=== PATIENT | male | born 1945 | race Caucasian/White ===

== ENCOUNTER 2023-04-07 14:24 | Observation (INO) | payer MEDICARE, SELFPAY ==
--- NOTE | 2023-03-16 11:55 | EKG12_ITS ---
Test Reason : PRE-OP Blood Pressure : / mmHG Vent. Rate : 073 BPM Atrial Rate : 073 BPM P-R Int : 146 ms QRS Dur : 094 ms QT Int : 386 ms P-R-T Axes : 060 060 053 degrees QTc Int : 425 ms Normal sinus rhythm Normal ECG Confirmed by TERA SALAZAR, CORY ([id number]), scientific editor LEONCIO SCOTT ([id number]) on 03/17/2023 8:54:52 AM Referred By: Cheko Epps Confirmed By:CORY HALEY MD
[2023-03-16 12:43] LABS: Absolute Lymphocyte Count 1.49 X10^3/uL (0.83-4.51); Absolute Neutrophil Count 4.3 X10^3/uL (2.0-7.7); Basophil# 0.04 X10^3/uL; Basophil% 0.6 % (0-1); Eosinophil# 0.23 X10^3/uL; Eosinophils% 3.4 % (0-5); Hematocrit 45.3 % (40-54); Hemoglobin 15.4 g/dL (13.0-16.5); Lymphocyte # 1.49 X10^3/ul (0.83-4.51); Lymphocyte % 22.3 % (19-41); Mean Corpuscular Hgb 29.4 pg (27.0-32.0); Mean Corpuscular Volume 86.6 fL (80-94); Mean Platelet Vol. 11.3 fl (6.2-12.0); Monocyte# 0.65 X10^3/uL; Monocyte% 9.7 % (0-10); NRBC Flagged by Analyzer 0 % (0-5); Neutrophil # 4.25 X10^3/uL (2.7-7.7); Neutrophil % 63.9 % (47-70); Platelet Count 160 K/mm3 (150-450); RBC Distribution Width CV 13.3 % (11.6-14.6); RBC Distribution Width SD 42.4 fl (35.1-43.9); Red Blood Count 5.23 M/mm3 (4.6-6.2); White Blood Count 6.7 K/mm3 (4.4-11.0)
[2023-03-16 13:19] LABS: Magnesium 2.2 mg/dL (1.6-2.6)
[2023-03-16 13:31] LABS: Albumin, Serum 3.8 g/dL (3.2-5.0); Anion Gap 4 (5-15); BUN 20 mg/dL (7-18); BUN/Creat Ratio 14.5 RATIO (10-20); Calcium,Total 9.6 mg/dL (8.5-10.1); Chloride 107 mmol/L (98-107); Creatinine, Serum 1.38 mg/dL (0.70-1.30); EST Glomerular Filtration Rate 53 mL/min (>60); Est Glom Filt Rate - Afr Amer 64 mL/min (>60); Glucose 103 mg/dL (74-106); Potassium 4.2 mmol/L (3.5-5.1); Sodium Level 142 mmol/L (136-145)
[2023-03-16 13:44] LABS: Partial Thromboplast Time 31.6 Seconds (24.1-36.2)
[2023-03-16 13:52] LABS: Hemoglobin A1c 6.3 % (3.8-5.6)
[2023-03-16 14:28] LABS: Prothrombin Time (Protime)PT. 13.6 SECONDS (11.7-14.9)
--- NOTE | 2023-03-29 13:03 | PCM.HP.BLA ---
History and Physical History and Physical? Patient Name: Fly Hernandez : 1945 From:? CITLALLI GAYTAN PA-C? DATE OF PRE-OPERATIVE EXAM: 03/29/2023 DATE OF SURGERY:? 04/07/2023 SCHEDULED PROCEDURE:? Excision bony ossification left total hip with possible revision left total hip HISTORY OF PRESENT ILLNESS: Preoperative history and physical exam was performed on March 29, 2023.? This is a 77-year-old male who has a past history of left total hip arthroplasty by Dr. Yonathan Burnett on December 16, 2021.? Patient developed heterotopic ossification in which she has had limited range of motion severely with increased pain.? Patient has underlying stage III chronic kidney disease and was unable to use nonsteroidal anti-inflammatories postoperatively.? Range of motion is a significant factor in activities.? He has difficulty sitting upright due to the lack of flexion.? There is been no trauma or injury.? Patient has had consultation with oncology for perioperative radiation treatment.? We have also obtain surgical clearance from the primary care physician Dr. Lewis.? Patient also reports that he has carotid artery stenosis and which she has been followed by specialist and treated conservatively.? He states he has 60% blockage.? Patient has medical history pertinent for hypertension, type 2 diabetes mellitus, stage III chronic kidney disease, hypercholesterolemia, benign prostatic hyperplasia, peripheral vascular disease.? He currently denies any chest pain, shortness of breath, fevers chills or recent infections.? Denies past history of DVT or pulmonary embolism.? After failing conservative measures at discussing all treatment options was Dr. Yonathan Burnett, the patient does wish to proceed with a excision bony ossification left total hip with possible revision left total hip.? Patient has also had a previous CT scan which was consistent with Superior bridging heterotopic ossification. REVIEW OF SYSTEMS: Review Of Systems: Constitutional: Denies change in appetite, fever and weight change. Cardiovasular: Denies chest pain, heart murmur and irregular heartbeat. Respiratory: Denies cough, pneumonia, shortness of breath, tuberculosis and wheezing. Gastrointestinal: Denies constipation, diarrhea, heartburn, nausea, rectal itching, bloody stools and vomiting. Genitourinary: Denies incontinence. Musculoskeletal: Reports gait disturbance, pain and weakness, but denies trouble walking. Skin: Reports tattoo, but denies Raynaud's and history of shingles. Neurological: Denies ambulatory dysfunction, dizziness, numbness/tingling and tremor. Psychiatric: Denies anxiety, insomnia and stress. Hematologic/Lymphatic: Denies anemia, bleeding/bruising tendency and past transfusion. Reviewed and updated. PAST MEDICAL HISTORY: Advance Care Plan: Other Directive, LIVING WILL Effective Date: 11/14/2021 Other Directive, POA Effective Date: 11/14/2021 Past Medical History: Medical Problems: Diabetes, High Blood Pressure, Hypercholesterolemia, Vascular Disease/ Peripheral, Arthritis, Covid-19 Vaccinated, Ureteral obstruction, Kidney Disease/Renal Failure, benign prostatic hyperplasia, Gout, carotid stenosis Accidents: None Surgical Hx: Appendectomy - [facility] Kidney Stones - [facility] Total Hip Replacement - (12/16/2021) SAW @ [facility] Anesthesia Complications: None Assistive Devices: Glasses, Dentures Reviewed and updated. SOCIAL HISTORY: Social History: Marital: .Occupation: Retired.Work Status: Retired.Hand Dominance: Right-handed. Personal Habits:? Cigarette Use: Former.Smokeless Tobacco: Never Used Smokeless Tobacco.E-Cigarette Use: Never used.Alcohol: Occasionally.Drug Use: Denies Use.Enjoy Exercising: Never Exercises. Reviewed, no changes. VITALS: Ht: 68 Wt: 158lb Wt k.[id number] BMI: 24.0 BP: 114/58 Pulse: 74 Resp: 12 T: 97.7 T: 36.5C Pain Level: 0 O2SatR: 98 ALLERGIES: Anti-Inflammatories Ibuprofen Aleve Naprosyn? MEDICATIONS: Atorvastatin Calcium 40 mg 1 by mouth every day, Metformin HCL 500 mg 1 by mouth every day, Merrick 3 1000 mg 2 by mouth every day, Vitamin D3 50 mcg (2000 Ut) 1 by mouth every day, Aspirin Adult Low Dose 81 mg by mouth 1 a day, Lisinopril 20 mg 1 by mouth every day PRE-OP EXAM:? General appearance:NORMAL? ? ? Other: Eyes: Conjunctivae and lids: NORMAL? Pupils: ERR Ears, Nose, Mouth, and Throat: NORMAL? Other: Inspection of lips, teeth and gums: NORMAL? ?Other: Neck: Examination of neck: no masses noted. Respiratory: Assessment of respiratory effort: NORMAL? ?Other: ?Auscultation of lungs: clear to auscultation no wheezes, rhonchi or rales. Cardiovascular:? Auscultation of heart: regular rate and rhythm, no murmurs, gallops or rubs. Exam of carotid arteries: NORMAL? ?Other: PHYSICAL EXAMINATION: Previous incision of the left hip is well-healed without erythema.? No signs of infection.? Range of motion is significantly limited with 30-45 flexion.? Internal rotation neutral.? Leg lengths appear equal.? Sensation intact to light touch. IMAGING STUDIES: Previous x-rays of the left hip revealed no signs of loosening or subsidence.? 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 On the lateral view there is significant anterior ossification.? These were compared to previous x-rays in which it does not show significant progression signifying maturation of the process.?? CT scan of the left thigh reveals anterior superior bridging heterotopic ossification IMPRESSION: 1.? Presence of left total hip arthroplasty with heterotopic ossification stage IV complete bridging 2.? Type 2 diabetes mellitus 3.? Hypertension 4.? Hypercholesterolemia 5.? Peripheral vascular disease 6.? Stage III chronic kidney disease 7.? Benign prostatic hyperplasia 8.? History of gout 9.? Carotid stenosis PLAN: Dr. Yonathan Burnett did discuss and review with the patient all treatment options including surgical versus nonsurgical options.? Patient does wish to proceed with the above-stated procedure.? Potential risks, benefits, and complications of the procedure were discussed in detail including but not limited to , infection, nerve and blood vessel damage, persistent pain, numbness, tingling, paresthesias, blood clot, pulmonary embolism, and requirement for possible further surgery.? The patient expressed full understanding and has no further questions for the doctor.? Patient does agree to proceed with the above-stated procedure and has signed the surgery consent form. POST-OP MEDICATION PLAN: Pain Medications: Patient is unable to use nonsteroidal anti-inflammatories due to stage III chronic kidney disease DVT Prophylaxis:? Aspirin 81 mg twice daily for 4 weeks postoperatively.? Denies past history of DVT or pulmonary embolism This dictation was created using voice recognition software. Phonetic and/or grammatical errors may exist. ___? I have re-examined the patient.? There are no clinical changes since date of exam. ___? See progress notes for changes. ___? Dictated on admission Date: ? ? ?Time: Signature:
[2023-04-07] VITALS (12 sets, daily range): BP systolic 117–133; BP diastolic 66–85; PULSE 81–98; RESP 12–18; TEMP 36.3–36.8; O2SAT 94–100; BMI 24.2
--- NOTE | 2023-04-07 | HIP_PTH ---
PATIENT: JOHN MOE LOC: MS3 U#:[id number] AGE/SX: 77/M ROOM: [facility] RE04/07/[address]: Dr. Yonathan Burnett MD : 1945 BED: 1 DIS: 04/08/2023 SPEC #: [id number] RECD: 04/07/23 15:20 STATUS: VENITA SNOW #: [id number] MELISSA: 04/07/23 00:[address]: Yonathan Burnett DEPT: SURGICAL PATHOLOGY RECD BY: Ravi Saldivar ENTERED: 04/08/23 09:31 SP TYPE: TOTAL HIP OTHR DR: Dr. Celestino Jefferson MD Tissues: Hip, NOS Procedures: Decalcification bone/plaque Surgery Specimen Level IV HEADER OPERATION: ERAS, excision bony ossification left hip PRE-OP DIAGNOSIS: Presence of left total hip arthroplasty with heterotopic ossification stage IV complete bridging TISSUE SUBMITTED: Left hip heterotopic ossification MICROSCOPIC DIAGNOSIS Left hip heterotopic ossification: Pieces of bone with reactive changes, clinically heterotopic ossification. PAUL:abhilash 04/15/2023 MICROSCOPIC DESCRIPTION Slides are reviewed. GROSS DESCRIPTION Received is one container labeled with the patient's name and designated left hip heterotopic ossification. The specimen consists of multiple pieces of bone that in aggregate measure 13.0 x 10.0 x 4.0 cm. No soft tissue is identified. Dumper sections are submitted after decalcification in three cassettes. / PAUL:abhilash 04/08/2023 TC:5 CPT: 59279, 03094
[2023-04-07] MEDS: Lactated Ringers 1,000 ML 999 ML IV ×2 (09:50→13:55)
[2023-04-07] MEDS: Magnesium 1 GM over 15 mins IV (10:00)
[2023-04-07] MEDS: Acetaminophen 500 MG Tablet 1000 MG PO ×2 (10:25→21:29)
[2023-04-07] MEDS: Gabapentin 600 MG Tablet PO (10:26)
[2023-04-07 10:59] LABS: Bedside Glucose 148 mg/dL (74-106)
[2023-04-07] MEDS: TXA 1000mg in NS100 100ml (IVPB at Closure) 660 MG IV (12:07)
[2023-04-07] MEDS: Lactated Ringers 1,000 ML 75 ML IV (12:16)
[2023-04-07] MEDS: Cefazolin 2 GM in 0.9% Normal Saline 100 ML IV (12:24)
[2023-04-07] MEDS: dexAMETHasone 10 MG/ML Vial IV (12:30)
[2023-04-07] MEDS: TXA 1000mg in NS100 100ml (IVPB at Incision) 660 MG IV (12:31)
[2023-04-07] MEDS: Heparin 10,000 UNITS/10 ML Vial 10000 UNITS (12:45)
--- NOTE | 2023-04-07 12:52 | RAD_ITS ---
STUDY: X-RAY - PELVIS AND LEFT HIP REASON FOR EXAM: Male, 77 years old. Replacement TECHNIQUE: 3 intraoperative views of the pelvis and hip. COMPARISON: None. FINDINGS: 3 limited intraoperative views were performed as the patient has undergone total replacement of the left hip joint. Components demonstrate anatomic alignment. No evidence of intraoperative complication. RAD/Hip 1 view with Pelvis IMPRESSION: No intraoperative complications noted during left hip replacement surgery Electronically Signed: Felipe Horner MD at 16:14 EDT ,
[2023-04-07] MEDS: JPS (Morphine 10mg/ml) OPERA.SITE (14:23)
--- NOTE | 2023-04-07 14:39 | OP.PCM_ITS ---
Report of Operation Date of Procedure: 04/07/23 Pre-Operative Diagnosis: Left hip painful total replacement with stiffness and heterotopic ossification Post-Operative Diagnosis: Left hip painful total replacement with stiffness and heterotopic ossification Surgery/Procedure Performed:: Left hip excision of benign bone lesion 10 cm x 12 cm x 4 cm Description of Surgical Findings:: Significant amount of heterotopic ossification from anterior and superior hip was removed. Measurements were 10 cm x 4 cm x 12 cm. Preoperatively patient can flex to 30 degrees. Postoperatively patient flex to 85 to 90 degrees without significant restriction. Surgeon: Yonathan Burnett ground instructor advanced: Zackary Brown Type of Anesthesia: Spinal Anesthesiologist: Kanu Clement Special Medications: 2 g Ancef, 1 g TXA at incision, 1 g TXA closure, 10 mg Decadron, joint cocktail (5 mg Duramorph, 30 mL of 0.5% Ropivicaine, 1000 units of epinephrine, 30 mg of Toradol) Specimen's removed: Heterotopic bone Fluids Replaced: 1200 mL crystalloid, 125 mL Cell Saver blood. Description of Procedure: On the date of the procedure patient was seen and evaluated in the preoperative area. His left hip was marked. Patient did have low-dose radiation the morning of the procedure and we attempted to the procedure within 4 hours of his low- dose radiation as recommended by the radiation oncologist. After marking hip patient was taken back to the operating room spinal anesthesia was administered in the PACU prior to going to the operating room. Once patient was in the operating room he was transferred to the table in the supine position. Anesthesia assumed control of the C-spine and airway and remained controlled throughout the remainder of the procedure. Patient was then adequately positioned with the help my physician customer relations assistant a blanket was placed into the sacrum to help tilt the pelvis appropriately. Once patient was adequately positioned and all bony prominences were identified well-padded left lower extremity was then prepped in sterile fashion while the surgeon scrubbed. Upon reentering the room the left lower extremity was draped in a standard orthopedic fashion. Timeout was called and everyone agreed upon the side, the site, the procedure to be performed, patient's identity and antibiotics given. Incision was then taken to the skin using the previous incision and extending it proximally distally 1 inch. We carefully dissected down to the fascia. Once we identified the fascia we could easily palpate some of the heterotopic ossification deep to the fascia. Once identified the ASIS we then incised the fascia lateral to the ASIS and carefully dissected off the TFL. Homocystine is begun in the interval between TFL began to start appreciating the heterotopic ossification. We carefully dissected along the anterior portion of the heterotopic ossification and distally where the distal projections were noted. Once we are able to dissect underneath the distal projections we did use the CT scan intraoperatively to verify and understand her positioning. We then placed an osteotome along the anterior cortex of the femur and removed the bony attachments noted at the anterior cortex of the femur. After these were removed we were able to remove some of the anterior acetabular ossifications. We carefully dissected around these trying to remove as little soft tissue as possible. We then directed our attention superiorly where the bony bridge from the greater trochanter to the superior acetabulum was. We carefully sucked around this area and using osteotome to separate the bony attachment to the acetabulum. There was a soft tissue attachment to the tip of the greater trochanter which was removed. Once this was done being removed we directed our attention to the anterior acetabulum once again. We were able to identify the the ossification here and was not fully attached the acetabulum based on the CT scan. We carefully dissected around were able to remove it. Finally we did do that there once more distally around the lesser trochanter and identified any additional bone and removed it. Once was done we are will take the hip through range of motion and flex the hip up to 85 to 90 degrees without instability. Hip could internally rotate to 20 degrees external rotate to 30. There is no evidence of instability in extension and external rotation as well. Based on this we elected not to proceed with any revision of implant as the implants remained stable and were well within life expectancy with minimal wear. A 3- minute dilute Betadine lavage was performed followed by 6 L of low-pressure lavage normal saline. When this was done bone wax was placed over the exposed bone to help with blood loss and hemostasis was obtained. Cell Saver was used and blood loss was calculated at 350 mL. Irrisept solution was used to irrigate out the wound for 1 minute and finally we again irrigated with normal saline and began closing the wound. Fascia was closed #1 Vicryl. Skin was closed with 2-0 Vicryl and final skin closure was done with nylon sutures. Sterile dressing was placed and patient was taken to the operating room for recovery in stable condition. On the back table the bony fragments were measured at 10 cm x 12 cm x 4 cm. Postop plan: Patient replaced on doxycycline for 2 weeks as we follow results due to the revision nature of the surgery. Patient replaced on aspirin 81 mg p.o. twice daily for 4 weeks then he can resume his normal aspirin dose. Patient will be weightbearing as tolerated. He should begin physical therapy as soon as possible on discharge from the hospital. Will admit him to observation overnight to verify that he does not require any further monitoring as this is an anticipated surgery with significant blood loss. During the course of the procedure the physician rn training (PE) played a vital role. Their intimate knowledge of my steps in the procedure aided in safe and expedient completion of the procedure. The PE played a vital rolls in positioning particularly in obtaining the appropriate positioning of the sacral bump. The PE was also vital in the retraction of soft tissues during the exposure and especially the femoral work as this is a vital part of the procedure to prevent complications and fractures. The PE was also vital and protecting soft tissues during times of bony cuts and reaming. He also played a vital role in closure with my direct supervision. The PE was also important during reduction and dislocation of the joint and trials intraoperatively. Admit VTE Documentation VTE Present on Admission: No VTE Mechan Device Prophylaxis: SCD's and Thigh High ABILIO Hose VTE Pharm Prophylaxis ordered?: Yes
--- NOTE | 2023-04-07 15:27 | RAD_ITS ---
EXAM: XR LEFT HIP WITH PELVIS WHEN PERFORMED, 2 OR 3 VIEWS CLINICAL INDICATION: Post Op -- AP both hips on single immanuel/lateral of op hip PACU TECHNIQUE: Two or three views of the left hip with pelvis when performed. COMPARISON: No relevant prior studies available. FINDINGS: BONES/JOINTS: There is a total left hip prosthesis in anatomic alignment. There is no loosening identified. No displaced fracture. No destructive or sclerotic lesions. Note that overlapping bowel shadows may however obscure fine detail. Sacroiliac joint is unremarkable. No widening of the pubic symphysis. SOFT TISSUES: There is gas in the overlying soft tissues which may be due to recent surgery. RAD/Hip Min 2 Views (Portable) IMPRESSION: Total left hip prosthesis in anatomic alignment. There are no osseous abnormalities. Electronically Signed: Srini Echavarria MD at 16:51 EDT ,
[2023-04-07 15:53] LABS: Bedside Glucose 198 mg/dL (74-106)
[2023-04-07] MEDS: Insulin Lispro 100 UNIT/ML INSULN.PEN SC (16:16)
[2023-04-07] MEDS: Ondansetron 4 MG/2 ML Vial IV (17:36)
[2023-04-07] MEDS: Ensure Surgery 237 ML LIQUID PO (17:36)
[2023-04-07] MEDS: Aspirin 81 MG TAB.CHEW PO (18:05)
[2023-04-07] MEDS: Cefazolin 1 GM/50 ML BAG IV (20:04)
[2023-04-07] MEDS: Atorvastatin Calcium 40 MG Tablet PO (21:28)
[2023-04-07] MEDS: Senna/Docusate Sodium 1 Tablet 2 TABLET PO (21:29)
[2023-04-08 02:10] VITALS: BP 119/76; PULSE 86; RESP 16; TEMP 36.3; O2SAT 96
[2023-04-08] MEDS: Cefazolin 1 GM/50 ML BAG IV (04:47)
[2023-04-08] MEDS: Acetaminophen 500 MG Tablet 1000 MG PO (04:47)
[2023-04-08 06:56] LABS: Hematocrit 38.1 % (40-54); Hemoglobin 12.9 g/dL (13.0-16.5); Mean Corp Hgb Conc 33.9 g/dL (32-36); Mean Corpuscular Hgb 29.1 pg (27.0-32.0); Mean Platelet Vol. 11.2 fl (6.2-12.0); Platelet Count 163 K/mm3 (150-450); RBC Distribution Width CV 13.3 % (11.6-14.6); RBC Distribution Width SD 41.3 fl (35.1-43.9); Red Blood Count 4.43 M/mm3 (4.6-6.2)
[2023-04-08 07:17] LABS: Anion Gap 6 (5-15); BUN 32 mg/dL (7-18); BUN/Creat Ratio 21.5 RATIO (10-20); Calcium,Total 8.6 mg/dL (8.5-10.1); Chloride 104 mmol/L (98-107); Creatinine, Serum 1.49 mg/dL (0.70-1.30); EST Glomerular Filtration Rate 49 mL/min (>60); Est Glom Filt Rate - Afr Amer 59 mL/min (>60); Estimated Creatinine Clearance 40.17 ml/min; Glucose 160 mg/dL (74-106); Potassium 4.1 mmol/L (3.5-5.1); Sodium Level 137 mmol/L (136-145)
[2023-04-08 08:00] VITALS: BP 102/57; PULSE 84; RESP 18; TEMP 36.4; O2SAT 97
[2023-04-08 09:06] VITALS: BMI 24.2
[2023-04-08] MEDS: Senna/Docusate Sodium 1 Tablet 2 TABLET PO (09:20)
[2023-04-08] MEDS: Doxycycline 100 MG CAPSULE PO (09:22)
[2023-04-08] MEDS: Aspirin 81 MG TAB.CHEW PO (09:22)
[2023-04-08] MEDS: Lisinopril 20 MG Tablet PO (09:22)
[2023-04-08] MEDS: Famotidine 20 MG Tablet PO (09:22)
[2023-04-08] MEDS: Calcium Carb/Vitamin D 1 TABLET Tablet PO (09:22)
[2023-04-08] MEDS: metFORMIN HCl 500 MG Tablet PO (09:22)
[2023-04-08] MEDS: Ensure Surgery 237 ML LIQUID PO (09:26)
--- NOTE | 2023-04-08 11:31 | PCM.PN.ORT ---
Subjective Subjective The patient was sitting in bedside chair upon examination. Patient denies any chest pain, shortness of breath, dizziness, lightheadedness, nausea or vomiting, or calf pain. Pain is controlled on medications. No adverse overnight events. Patient states he is doing well. He has no pain in his hip right now. He has been up walking. He has used the restroom multiple times. Objective Data Objective Data Vital Signs: Vital Signs Temp Pulse Resp BP Pulse Ox O2 Del Method O2 Flow Rate 97.6 F L 84 18 102/57 L 97 Room Air 4 04/08/23 08:00 04/08/23 08:00 04/08/23 08:00 04/08/23 08:00 04/08/23 08:00 04/08/23 08:00 04/07/23 16:30 Oxygen Flow Rate (L/min) 4 Oxygen Delivery Method Room Air Weight: 72.3 kg Body Mass Index (BMI) 24.2 Intake & Output: Intake and Output for Last 24 Hours 04/06/23 04/07/23 04/08/23 23:59 23:59 23:59 Intake Total 2918.25 / 3268.25 400 / 400 Balance 2918.25 / 3268.25 400 / 400 Lab / Micro Data 04/08/23 06:20 04/08/23 06:20 Labs: Laboratory Results - last 24 hr 04/07/23 15:28: POC Glucose 198 H 04/08/23 06:20: WBC 13.0 H, RBC 4.43 L, Hgb 12.9 L, Hct 38.1 L, MCV 86.0, MCH 29.1, MCHC 33.9, RDW Std Deviation 41.3, RDW Coeff of Junie 13.3, Plt Count 163, MPV 11.2, Sodium 137, Potassium 4.1, Chloride 104, Carbon Dioxide 27.0, Anion Gap 6, BUN 32 H, Creatinine 1.49 H, Estim Creat Clear Calc 40.17, Est GFR (MDRD) Af Amer 59 L, Est GFR (MDRD) Non-Af 49 L, BUN/Creatinine Ratio 21.5 H, Glucose 160 H, Calcium 8.6 Micro: Microbiology 03/16/23 12:16 Swab (Method) Nasal Screen MRSA/MSSA - Final Radiography Diagnostic Testing: Radiology Impression Hip/Pelvis X-Ray 04/07/23 12:52 IMPRESSION: No intraoperative complications noted during left hip replacement surgery Electronically Signed: Felipe Horner MD at 16:14 EDT , Hip X-Ray 04/07/23 15:27 IMPRESSION: Total left hip prosthesis in anatomic alignment. There are no osseous abnormalities. Electronically Signed: Srini Echavarria MD at 16:51 EDT , Physical Exam Narrative Vital signs stable and afebrile. SCDs and ABILIO hose are in place bilaterally Patient is able to plantarflex and dorsiflex actively. Sensation is intact to light touch to saphenous, sural, superficial and deep peroneal, and tibial distribution. Dressing is clean dry and intact. Negative Homans bilaterally, negative signs and symptoms of DVT. Const alert, oriented x3 and no apparent distress Assessment & Plan Assessment/Plan (1) Heterotopic ossification of joint: PLAN: 1. S/P left hip excision of benign bone lesion 10 cm x 12 cm x 4 cm POD #1 2. Continue Pain Medications: Tylenol and oxycodone as needed. Patient is unable to take nonsteroidal anti-inflammatories due to to his chronic kidney disease 3. DVT Prophylaxis: Take 81 mg aspirin twice daily for 4 weeks postoperatively for DVT prophylaxis. Patient denies past history of DVT or pulmonary embolism 4. PT/OT: Weightbearing as tolerated with walker 5. Labs have been reviewed and patient stable. He has stable chronic kidney disease. He has had reactive leukocytosis currently 13.0 and afebrile. He did receive Decadron intraoperatively 6. Currently on doxycycline for 2 weeks postoperatively. I discussed with the patient potential side effects of doxycycline including sensitivity to the sunlight and increased risk of skin burn. Recommend patient take appropriate precautions. Also recommend patient to take probiotic while on the antibiotic. Patient voiced understanding agreement. 7. Continue postoperative medical management per medicine 8. Encouraged Incentive Spirometry 9. Disposition: Plan will be for discharge home today as long as patient is tolerating physical therapy, pain well controlled, and medically stable. He would like his prescriptions E scribed to [facility]. He has outpatient physical therapy established. He will follow-up per postoperative instructions. Upon discharge she will contact her office with any concerns or questions. I have reviewed the [place] Automated Rx Reporting System (OARRS) report for this patient for refill pattern and other prescriber involvement as part of the appropriate surveillance for the provision of acute and chronic controlled medications. The report was requested and reviewed on the date of this entry and was considered in the prescribing process. This dictation was created using voice recognition software. Phonetic and/or grammatical errors may exist.
--- NOTE | 2023-04-08 11:35 | PCM.DC ---
Discharge Instructions Diet Discharge Diet: No restrictions Activity Discharge Activity: May Not Drive (while taking narcotic pain medications.) May shower in (days): 1 (only if incision is dry and without drainage. Do NOT soak/submerge in tub/pool/dickens/stream/hot tub.)) Ice area for (Minutes): 20 (Every 1-2 [address] barrier between ice and skin.) Weight Bearing Status: Weight bearing as tolerated Keep extremity elevated above heart level: Operative Extremity Additional Activity Instructions:: Follow [facility] Post-op Instructions. Once postoperative dressing has been removed only use gentle soap and water over the incision. Do not use any ointments, Neosporin, salves, alcohol pads over the incision for 6 weeks postoperatively. Do not submerge underwater for 6 weeks postoperatively. Wear elastic stockings for 2 weeks. Do NOT use alcohol with narcotic pain medication. Do NOT make important decisions while taking narcotic medication. If you have problems with taking your medication (rash, itching, nausea, etc.) call the office at once. Dressing / Incision Call your doctor if your incision/area has: Continuous Slow Oozing, Sudden Increased Bleeding, Increased Pain/ Swelling, Increased Redness and Foul Smelling Discharge Call your doctor if you observe: Fever of 101 or Higher, Shortness of breath, Chest pain, Calf discomfort and Uncontrolled pain Remove Dressing in: 4 days (Okay to remove dressing on April 12, 2023) Additional Dressing/Incision Instructions:: Follow [facility] Post-op Instructions. Once postoperative dressing has been removed, only use gentle soap and water over the incision. Do not use any ointments, Neosporin, salves, alcohol pads over the incision for 6 weeks postoperatively. Do not submerge underwater for 6 weeks postoperatively. Continue with ABILIO hose/elastic stockings for 2 weeks postoperatively. May remove at nighttime but needs to be placed back on the leg during the day. Do NOT use alcohol with narcotic pain medication. Do NOT make important decisions while taking narcotic medication. If you have problems with taking your medication (rash, itching, nausea, etc.) call the office at once. Follow Up Care Test Results: Test results from this visit will be discussed in further detail at your follow-up appointment, if applicable. Discharge Plan Admission Admit Date/Time: 04/07/23 14:24 Attending Provider: Hortencia,Yonathan Primary Care Provider: BLANQUITA CABREAR Consulting Providers: Celestino Jefferson Discharge Orders/Prescriptions Prescriptions: New acetaminophen 500 mg Tablet 1,000 mg PO Q8 Qty: 0 0RF Rx Instructions: Do not take more than 3000 mg Tylenol in a 24-hour period. aspirin 81 mg Tablet,Chewable 81 mg PO BIDCM 30 Days Qty: 0 0RF Rx Instructions: Take 81 mg aspirin twice daily for 4 weeks postoperatively for DVT prophylaxis. doxycycline monohydrate 100 mg Capsule 100 mg PO BID 30 Days Qty: 60 0RF Rx Instructions: Take for 2 weeks postoperatively famotidine 20 mg Tablet 20 mg PO DAILY 30 Days Qty: 30 0RF oxycodone 5 mg Tablet 5 - 10 mg PO Q4H PRN PRN (Reason: Pain Score 4-10) 4 Days Qty: 14 0RF sennosides-docusate sodium [Stool Softener-Stimulant Laxat] 8.6-50 mg Tablet 2 tab PO BID 3 Days Qty: 12 0RF Rx Instructions: Take until first bowel movement, then as needed Continued atorvastatin 40 mg tablet 40 mg PO DAILY metformin 500 mg tablet 500 mg PO DAILY omega-3 fatty acids [Super [place]-3] 1,000 mg capsule 1,000 mg PO DAILY lisinopril 20 mg tablet 20 mg PO DAILY calcium-vitamin D3 250-50 mg-unit Tablet 1 tab PO DAILY Discontinued aspirin [Adult Aspirin Regimen] 81 mg tablet,delayed release (DR/EC) 81 mg PO DAILY Other Ambulatory Orders: Type & Screen - PAT ONLY (Routine) Timeframe: [id number] Facility: [facility] - Location: Laboratory Ordered By: Dr. Kanu Clement Referrals / Follow Up: Physical,Therapy [Other] - 04/13/23 10:30 am Zackary Brown PA-C [Med Staff - Adv Practice Prof] - 04/23/23 3:30 pm Disposition Disposition (needs filled in before D/C Order can be placed): Home, Self Care
--- NOTE | 2023-04-08 11:40 | CASEMGMT ---
GIL DALTON Assessment: Face to Face with pt for initial transition planning/care coordination assessment. RN SHA introduced self and role at [facility], pt voices understanding and consents to assessment. Pt is A/O x4 and answers all questions appropriately at this time. Pt sitting up in chair in no distress with at bedside. Care providers, pharmacy, and demographics verified/updated. 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: yes LNOK: Chelsea Hernandez, Living Arrangements: Pt lives with in a two story home with 4 steps to enter. Pt states he has a bed and bath on the main level and occasionally uses the second floor. Pt denies concerns at home. Transportation: Pt drives self and denies concerns with transportation. Pt will transport pt until he can drive again. DME/HHC/SNF: Pt has a FWW, sock aid and cane. Pt denies hx of HHC or SNF stays. Pt states no concerns with going home at time of dc. He has therapy set up in 2wks at [facility] in [place]. Pt states no further concerns/needs. CM to follow. Advised pt to ask CM if any further question/concerns/needs arise, voices understanding. Pt Goal: Home with outpt therapy already set up Plan: Home with outpt therapy already set up
--- NOTE | 2023-04-08 12:27 | PHA.DC.MC.R ---
Pharmacy [facility] Service has performed discharge medication reconciliation and counseling for this patient. The patient's discharge medication list was reviewed for discrepancies and discrepancies were resolved. The patient was counseled on the following discharge medications and changes in medications for homegoing were reviewed. 1. TYLENOL 2. ASPIRIN 3.DOXYCYCLINE 4. OXYCODONE 5. SENNA-S 6. PEPCID The Reason for Use, instructions for use, and potential side effects were reviewed for all new medications. The patient's questions regarding all of their medications were answered. The patient was able to verbally demonstrate an understanding of their discharge medications. Medications at Discharge Home Medications atorvastatin 40 mg tablet 40 mg PO DAILY HLD 12/29/22 calcium-vitamin D3 250 mg-50 unit tablet 1 tab PO DAILY DUPPLEMENT 12/29/22 lisinopril 20 mg tablet 20 mg PO DAILY HTN 12/29/22 metformin 500 mg tablet 500 mg PO DAILY BLOOD GLUCOSE CONTROL 12/29/22 omega-3 fatty acids 1,000 mg capsule (Super [place]-3) 1,000 mg PO DAILY SUPPLEMENT 12/29/22 acetaminophen 500 mg tablet 1,000 mg (2 x 500 mg) PO Q8 #0 tabs 04/08/23 aspirin 81 mg chewable tablet 81 mg PO BIDCM 30 days #0 tabs 04/08/23 doxycycline monohydrate 100 mg capsule 100 mg PO BID 30 days #60 caps 04/08/23 famotidine 20 mg tablet 20 mg PO DAILY 30 days #30 tabs 04/08/23 oxycodone 5 mg tablet 5 - 10 mg (1 - 2 x 5 mg) PO Q4H PRN PRN Pain Score 4-10 4 days #14 tabs 04/08/23 sennosides 8.6 mg-docusate sodium 50 mg tablet (Stool Softener-Stimulant Laxative) 2 tab PO BID 3 days #12 tabs 04/08/23
--- NOTE | 2023-04-08 12:55 | CASEMGMT ---
Social Work SW met with pt and spouse and discussed advance directives. Pt states he has completed both a living will and HCPOA naming his Chelsea. Pt states documents are on file at [facility]. Pt signed ANGELITO and SW faxed to [place] medical records. SUKH Morales
== END 2023-04-08 12:57 | disposition home or self-care (01) ==
LOC: MS3 16:14
PROVIDERS: Anesthesiology; Admitting Provider Specialist; Referring Provider Specialist; Visit Provider Specialist
PROC: (CPT 27066; principal; 2023-04-07 09:35)
DX: T84.84XA Pain due to internal orthopedic prosthetic devices, implants and grafts, initial encounter (principal); E11.51 Type 2 diabetes mellitus with diabetic peripheral angiopathy without gangrene; E11.22 Type 2 diabetes mellitus with diabetic chronic kidney disease; N18.30 Chronic kidney disease, stage 3 unspecified; M19.90 Unspecified osteoarthritis, unspecified site; E78.00 Pure hypercholesterolemia, unspecified; Z87.891 Personal history of nicotine dependence; I12.9 Hypertensive chronic kidney disease with stage 1 through stage 4 chronic kidney disease, or unspecified chronic kidney disease; Z79.84 Long term (current) use of oral hypoglycemic drugs; N40.0 Benign prostatic hyperplasia without lower urinary tract symptoms; Z79.899 Other long term (current) drug therapy; Z79.82 Long term (current) use of aspirin; Y79.2 Prosthetic and other implants, materials and accessory orthopedic devices associated with adverse incidents; Z96.642 Presence of left artificial hip joint; M67.854 Other specified disorders of tendon, left hip; M25.80 Other specified joint disorders, unspecified joint
CPT/HCPCS: 27066; 01210; 36415; 73501; 73502; 76000; 77280; 77334; 77412; 80048; 82040; 82962; 83036; 83735; 85025; 85027; 85610; 85730; 87081; 88305; 88311; 93005; 94668; 96365; 96366; 96375; 97162; 97166; 99221; 99252; J7050; J7120; G0378; G0463; J2405; J3475